=== PATIENT | male | born 1960 | race Caucasian/White ===

== ENCOUNTER 2019-01-04 20:39 | Emergency (ER) | payer OTHER ==
[~2019-01-04] VITALS: Ht 190.5 cm; Wt 67.3 kg
[2019-01-04 20:51] VITALS: Ht 190.5 cm; Wt 67.3 kg
[2019-01-04] MEDS ORDERED: AMLODIPINE 10 MG TAB PO ONE (22:00)
--- NOTE | 2019-01-04 23:19 | ERD ---
ER Documentation Chief Complaint Chief Complaint SUDDEN ONSET OF TACHEYCARDIA, PALPITATION, SOB HPI This is a 58-year-old male who presents for evaluation of supraventricular tachycardia brought in by ambulance in the field. Patient states he drinks a lot of caffeine, and this may have been a trigger. He has never done this befor e. The episode self resolved, with a Valsalva maneuver. He denies any chest pain or shortness of breath. He had no syncope, no nausea vomiting ROS All systems reviewed and are negative except as per history of present illness. Allergies Allergies: Coded Allergies: No Known Allergy (Unverified , 01/04/19) PMhx/Soc Medical and Surgical Hx: pt denies Medical Hx, pt denies Surgical Hx History of Surgery: No Anesthesia Reaction: No Hx Neurological Disorder: No Hx Respiratory Disorders: No Hx Cardiac Disorders: No Hx Psychiatric Problems: No Hx Miscellaneous Medical Probl: No (PT DENIES PAST M/S HX) Hx Alcohol Use: No Hx Substance Use: No Hx Tobacco Use: Yes Smoking Status: Current every day smoker Physical Exam Vitals Vital Signs Date Temp Pulse Resp B/P (MAP) Pulse Ox O2 O2 Flow FiO2 Time Delivery Rate 01/04/19 98.3 83 18 203/132 98 20:51 (155) 01/04/19 Nasal 2.0 20:51 Cannula Physical Exam Const: Pleasant, well-developed well-nourished Head: Atraumatic Eyes: Normal Conjunctiva ENT: Normal External Ears, Nose and Mouth. Neck: Full range of motion. No meningismus. Resp: Clear to auscultation bilaterally, no wheezes rales or rhonchi Cardio: Regular rate and rhythm, no murmurs Abd: Soft, non tender, non distended. Normal bowel sounds Skin: No petechiae or rashes Back: No midline or flank tenderness Ext: No cyanosis, or edema Neur: Awake and alert Psych: Normal Mood and Affect Result Diagram: 01/04/19211201/04/192112 Results 24 hrs Laboratory Tests Test 01/04/19 21:13 White Blood Count 6.3 10^3/ul Red Blood Count 4.77 10^6/ul Hemoglobin 14.3 g/dl Hematocrit 42.3 % Mean Corpuscular Volume 88.7 fl Mean Corpuscular Hemoglobin 30.0 pg Mean Corpuscular Hemoglobin Concent 33.8 g/dl Red Cell Distribution Width 13.3 % Platelet Count 227 10^3/UL Mean Platelet Volume 9.1 fl Immature Granulocytes % 0.200 % Neutrophils % 62.8 % Lymphocytes % 26.9 % Monocytes % 6.4 % Eosinophils % 2.9 % Basophils % 0.8 % Nucleated Red Blood Cells % 0.0 /100WBC Immature Granulocytes # 0.010 10^3/ul Neutrophils # 4.0 10^3/ul Lymphocytes # 1.7 10^3/ul Monocytes # 0.4 10^3/ul Eosinophils # 0.2 10^3/ul Basophils # 0.1 10^3/ul Nucleated Red Blood Cells # 0.0 10^3/ul Sodium Level 141 mmol/L Potassium Level 5.0 mmol/L Chloride Level 105 mmol/L Carbon Dioxide Level 28 mmol/L Anion Gap 8 Blood Urea Nitrogen 27 mg/dl Creatinine 1.28 mg/dl Est Glomerular Filtrat Rate mL/min 58 mL/min Glucose Level 98 mg/dl Calcium Level 9.1 mg/dl Total Bilirubin 0.2 mg/dl Direct Bilirubin 0.00 mg/dl Indirect Bilirubin 0.2 mg/dl Aspartate Amino Transf (AST/SGOT) 25 IU/L Alanine Aminotransferase (ALT/SGPT) 14 IU/L Alkaline Phosphatase 47 IU/L Troponin I < 0.012 ng/ml Total Protein 7.0 g/dl Albumin 4.3 g/dl Globulin 2.70 g/dl Albumin/Globulin Ratio 1.59 Current Medications Medications Dose Sig/Sarbjit Start Time Status Last (Trade) Ordered Route PRN Stop Time Admin Dose Reason Admin Amlodipine 10 mg ONCE ONCE 01/04/19 DC 01/04/19 Besylate PO 22:00 22:29 (Norvasc) 01/04/19 22:01 Procedures/MDM This is a 58-year-old male who presents for evaluation of palpitations, and was noted to be in SVT in the field, the patient was treated with a Valsalva maneuver, which resolved the symptoms. He was noted to be hypertensive, however he had no evidence of endorgan damage, at this point have a low suspicion for an ischemic event, I discussed findings with patient, and at discharge he was in no distress. EKG: Rate/Rhythm: Normal Sinus Rhythm QRS, ST, T-waves: No changes consistent w/ acute ischemia Impression: No evidence of ischemia or arrhythmia Departure Diagnosis: Primary Impression: SVT (supraventricular tachycardia) Additional Impression: Hypertension Hypertension type: unspecified Qualified Codes: I10 - Essential (primary) hypertension Condition: Stable CECILIA KAMINSKI MD Jan 04, 2019 23:19
[2019-01-04] MEDS ORDERED: AMLO-218 PO (23:20)
[2019-01-04 23:39] VITALS: BP 152/101; PULSE 63; RESP 16
== END 2019-01-04 23:50 | disposition home or self-care (01) ==
LOC: E/R 20:39
DX: R00.0 Tachycardia, unspecified (principal); I10 Essential (primary) hypertension; R40.2142 Coma scale, eyes open, spontaneous, at arrival to emergency department; R40.2252 Coma scale, best verbal response, oriented, at arrival to emergency department; R40.2362 Coma scale, best motor response, obeys commands, at arrival to emergency department; F17.210 Nicotine dependence, cigarettes, uncomplicated
CPT/HCPCS: 71045; 80053; 84484; 85025; 93005; Z7502; Z7610

== ENCOUNTER 2019-01-15 08:08 | Emergency (ER) | payer OTHER ==
[~2019-01-15] VITALS: Wt 77.0 kg
[~2019-01-15 08:08] MED LIST: AMLO-218 PO
[2019-01-15 08:10] VITALS: BP 185/90; PULSE 77; RESP 18
[2019-01-15] MEDS ORDERED: AMLO-218 PO (08:24)
[2019-01-15] MEDS ORDERED: AMLODIPINE 10 MG TAB PO ONE (08:30)
--- NOTE | 2019-01-15 13:40 | ERD ---
ER Documentation Chief Complaint Chief Complaint refill of norvasc HPI 58-year-old man with a history of hypertension presents with medication refill request, he ran out of his amlodipine about 1 month ago and states it was helping him. He denies headache or blurry vision, no chest pain, no shortness of breath, no vision loss ROS All systems reviewed and are negative except as per history of present illness. Medications Home Meds Active Scripts Amlodipine Besylate* (Norvasc*) 10 Mg Tablet, 10 MG PO DAILY, #30 TAB Prov:CECILIA HODGSON MD 01/15/19 Amlodipine Besylate* (Norvasc*) 10 Mg Tablet, 10 MG PO DAILY for 30 Days, TAB Prov:CECILIA KAMINSKI MD 01/04/19 Allergies Allergies: Coded Allergies: No Known Allergy (Unverified , 01/04/19) PMhx/Soc Hypertension History of Surgery: No Anesthesia Reaction: No Hx Neurological Disorder: No Hx Respiratory Disorders: No Hx Cardiac Disorders: Yes (HTN) Hx Psychiatric Problems: No Hx Miscellaneous Medical Probl: No (PT DENIES PAST M/S HX) Hx Alcohol Use: No Hx Substance Use: No Hx Tobacco Use: Yes Smoking Status: Current every day smoker Physical Exam Vitals Vital Signs Date Temp Pulse Resp B/P (MAP) Pulse Ox O2 O2 Flow FiO2 Time Delivery Rate 01/15/19 98.1 77 18 185/90 99 08:10 (121) Physical Exam Const: No acute distress, afebrile Resp: Clear to auscultation bilaterally Cardio: Regular rate and rhythm, no murmurs Abd: Soft, non tender, non distended. Normal bowel sounds Skin: No petechiae or rashes Back: No midline or flank tenderness Ext: No cyanosis, or edema Neur: Awake and alert x3, no focal deficits or facial asymmetry, gait normal Psych: Normal Mood and Affect Results 24 hrs Current Medications Medications Dose Sig/Sarbjit Start Time Status Last (Trade) Ordered Route PRN Stop Time Admin Dose Reason Admin Amlodipine 10 mg ONCE ONCE 01/15/19 DC 01/15/19 Besylate PO 08:30 01/15/19 08:42 (Norvasc) 08:31 Procedures/MDM I administered 1 dose of amlodipine 10 mg p.o. x1. Patient's blood pressure improved. Patient feels much better at this time, and vital signs are normal, symptoms have improved. I did give strict instructions to return to the ED if symptoms continue or worsen, patient will otherwise follow-up with primary care physician. Patient understood instructions and agreed to plan. Disclaimer: Inadvertent spelling and grammatical errors are likely due to E HR/dictation software use and do not reflect on the overall quality of patient care. Also, please note that the electronic time recorded on this note does not necessarily reflect the actual time of the patient encounter. Departure Diagnosis: Primary Impression: Encounter for medication refill Additional Impression: Hypertension Hypertension type: essential hypertension Qualified Codes: I10 - Essential (primary) hypertension Condition: Good Patient Instructions: Hypertension, Established Referrals: [facility] (PCP) CECILIA HODGSON MD January 15, 2019 13:40
== END 2019-01-15 09:10 | disposition home or self-care (01) ==
LOC: FTE 08:08
DX: Z76.0 Encounter for issue of repeat prescription (principal); I10 Essential (primary) hypertension
CPT/HCPCS: Z7502; Z7610; 99283